=== PATIENT | male | born 1940 | race Caucasian/White ===

== ENCOUNTER → 2017-09-24 | Day surgery (SDC) | payer MEDICARE ==
[2017-09-23 11:01] VITALS: BMI 29.3
[~2017-09-24] MED LIST: ALPRAZolam 0.25 MG TAB PO PRN; ASPIRIN 325 MG TAB PO STA; ASPIRIN 81 MG PO SCH; DOXAZOSIN MESYLATE 8 MG PO SCH; GLIMEPIRIDE 4 MG TAB PO SCH; HEPARIN SODIUM 1,000 UN/ML (10ML VL) ONE; HYDROCHLOROTHIAZIDE PO SCH; IOPAMIDOL-370 125ML BTL INJ ONE; LIDOCAINE 2% SYG (PF) 100 MG/5 ML MISCELLANE ONE; METOPROLOL SUCCINATE (ER) 100 MG TAB.ER.24H PO SCH; NON-FORMULARY DRUG (Omeprazole 20 MG) PO SCH; NON-FORMULARY DRUG (Sitagliptin 100 MG) PO SCH; RX INFO: IV CONTRAST WAS GIVEN 1 EACH MISC MISCELLANE PRN; SODIUM CHLORIDE 0.9% 1,000 ML IV SCH; SODIUM CHLORIDE 0.9% 1,000 ML in EMPTY BAG 1 BAG IV ONE; VALSARTAN PO SCH; VERAPAMIL SYRINGE (5 MG/10 ML) INTRAARTER ONE; [UNRECOGNIZED DRUG - OTHER] PO SCH; amLODIPine 10 MG TAB PO SCH; cloNIDine HCL 0.2 MG TAB PO SCH; fentaNYL (PF) 50 MCG/ML 2 ML AMP IV ONE; fentaNYL (PF) 50 MCG/ML 2 ML AMP ONE
[2017-09-24 07:06] LABS: Basophils # (A) 0.1 k/uL (0-0.2); Basophils % (A) 1 %; Eosinophils # (A) 0.2 k/uL (0-0.7); Eosinophils % (A) 3 %; HCT 38.7 % (39.0-53.0); HGB 13.3 gm/dL (13.0-17.5); Lymphocytes # (A) 0.7 k/uL (1.0-4.8); Lymphocytes % (A) 11 %; MCH 30.1 pg (25.0-35.0); MCHC 34.3 g/dL (31.0-37.0); MCV 87.8 fL (80.0-100.0); Mean Platelet Volume 8.6; Monocytes # (A) 0.5 k/uL (0-1.0); Monocytes % (A) 8 %; Neutrophils # (A) 4.9 k/uL (1.3-7.7); Neutrophils % (A) 76 %; Platelet Count 139 k/uL (150-450); RBC 4.41 m/uL (4.30-5.90); RDW 13.4 % (11.5-15.5); WBC 6.5 k/uL (3.8-10.6)
[2017-09-24 07:08] LABS: Glucose,Whole Blood 185 mg/dL (75-99)
[2017-09-24 07:11] VITALS: TEMP 98
--- NOTE | 2017-09-24 08:45 | CC ---
CARDIAC CATHETERIZATION REPORT Mr. Gannon is a 77-year-old male with known history of hypertension, hyperlipidemia, diabetes mellitus, who recently underwent a myocardial perfusion imaging revealed evidence of inferoapical wall ischemia. In view of that, recommendation was made regarding cardiac catheterization. The procedure as well as the risks and the complications were discussed with the patient who is in full understanding and agreement. PROCEDURE: Patient was brought to the cath lab technologist in a fasting state after receiving fentanyl and Benadryl and achieving moderate conscious sedated state. Using Xylocaine anesthesia in the Seldinger technique, a 6-Lithuanian sheath was introduced in the right radial artery. Selective right and left coronary angiography performed using 5-Lithuanian 3.5 bend right and left Shelby catheter. Multiple views of the coronary artery including hemiaxial views obtained. Following that 5-Lithuanian tight pigtail catheter was introduced in the left ventricle and a 30-degree SPRAGUE view of the left ventricle was obtained. Following that, catheter and sheaths were removed. Hemostasis was obtained with deployment of a TR band. There was no immediate complication. Patient was returned to his room in stable condition. The patient received 4500 units of intravenous heparin as well as intraarterial verapamil. FINDINGS: LEFT MAIN: This is a large-sized vessel bifurcating left circumflex, left anterior descending artery. Left main coronary artery has no evidence of high-grade stenosis. LEFT ANTERIOR DESCENDING ARTERY: This is a large-sized vessel tapers down distal third giving rise to 2 diagonal branches of small to moderate caliber. The left anterior descending artery after the takeoff of the diagonal branch has a tubular lesion of 30% to 40%. The rest of the vessel has no high-grade stenosis. The caliber of the vessel distally is small. LEFT CIRCUMFLEX: This is a nondominant vessel, large in caliber giving rise to 3 obtuse marginal branches. The left circumflex as well as branches have no evidence of obstructive coronary disease. RIGHT CORONARY ARTERY: This is a large dominant vessel bifurcating distally to PDA and posterolateral segment and branches. The right PDA reaches toward the inferoapical wall. The right coronary artery in the proximal segment has a 20% plaque. The rest of the vessel has no high-grade stenosis. LEFT VENTRICULOGRAM: Left ventriculogram is performed in 30-degree SPRAGUE view and revealed a normal left ventricular size and systolic function. The ejection fraction is 60%. There was no significant mitral regurgitation. HEMODYNAMICS: There was no gradient across the aortic valve. The left ventricular end- diastolic pressure is 18 to 20 mmHg. CONCLUSION: 1. Mild coronary disease involving the left anterior descending artery and the right coronary artery. 2. Normal left ventricular size and systolic function. RECOMMENDATION: In view of finding anatomy, I have recommended to continue medical therapy with aggressive coronary risk modifications that have been initiated. Those findings and recommendation were discussed with the patient and his family and are in full understanding and agreement. DURATION OF PROCEDURE: 16 minutes. LEDA / AARONN: [id number] /
[2017-09-24 09:09] VITALS: RESP 18
[2017-09-24 12:10] VITALS: BP 119/59; PULSE 66
== END | disposition home or self-care (01) ==
LOC: CATHCVL 06:20
PROVIDERS: ATTEND Internal Medicine Interventional Cardiology
DX: I25.10 Atherosclerotic heart disease of native coronary artery without angina pectoris (principal); R94.39 Abnormal result of other cardiovascular function study; I10 Essential (primary) hypertension; E78.2 Mixed hyperlipidemia; E11.9 Type 2 diabetes mellitus without complications; Z79.84 Long term (current) use of oral hypoglycemic drugs; Z79.82 Long term (current) use of aspirin; Z79.899 Other long term (current) drug therapy
CPT/HCPCS: 93458; 85025; C1894; C1769; J2001; J3010; J1644; Q9967

== ENCOUNTER → 2022-10-27 | Outpatient (CLI) | payer MEDICARE ==
[2022-10-27 15:43] LABS: HCT 38.3 % (39.6-50.0); MCH 28.3 pg (27.0-32.0); MCHC 31.3 d/dL (32.0-37.0); MCV 90.3 FL (80.0-97.0); Mean Platelet Volume 11.8 FL (9.5-12.2); NRBC Per 100 WBC 0 X 10*3/uL (0.00-0.01); Platelet Count 164 X 10*3/uL (140-440); RBC 4.24 X 10*6/uL (4.40-5.60); RDW 13.5 % (11.5-14.5)
[2022-10-27 15:54] LABS: Blood Urea Nitrogen 20.5 mg/dL (9.0-27.0); Carbon Dioxide 27.7 mmol/L (21.6-31.8); Chloride 105 mmol/L (96-109); Sodium 143 mmol/L (135-145)
== END | disposition home or self-care (01) ==
LOC: LABWHC1 11:24
PROVIDERS: ATTEND Internal Medicine Interventional Cardiology
DX: Z01.812 Encounter for preprocedural laboratory examination (principal); R94.39 Abnormal result of other cardiovascular function study
CPT/HCPCS: 36415; 80051; 82565; 84520; 85027

== ENCOUNTER 2022-11-04 06:15 | Day surgery (SDC) | payer MEDICARE ==
[~2022-11-04 06:15] MED LIST changes: +ALPRAZolam 0.5 MG TAB PO PRN; -ASPIRIN 81 MG PO SCH; +ATORVASTATIN 80 MG TAB PO STA; -DOXAZOSIN MESYLATE 8 MG PO SCH; -GLIMEPIRIDE 4 MG TAB PO SCH; -HEPARIN SODIUM 1,000 UN/ML (10ML VL) ONE; +HEPARIN SODIUM,PORCINE (1 ML) 2,500 UNIT in SODIUM CHLORIDE 0.9% 250 ML IRRIGATION PRN; +HEPARIN SODIUM,PORCINE 10,000 UNIT in SODIUM CHLORIDE 0.9% 1,000 ML IRRIGATION PRN; -HYDROCHLOROTHIAZIDE PO SCH; -IOPAMIDOL-370 125ML BTL INJ ONE; -LIDOCAINE 2% SYG (PF) 100 MG/5 ML MISCELLANE ONE; -METOPROLOL SUCCINATE (ER) 100 MG TAB.ER.24H PO SCH; +NITROGLYCERIN SL TABS 0.4 MG TAB SUBLINGUAL PRN; -NON-FORMULARY DRUG (Omeprazole 20 MG) PO SCH; -NON-FORMULARY DRUG (Sitagliptin 100 MG) PO SCH; -RX INFO: IV CONTRAST WAS GIVEN 1 EACH MISC MISCELLANE PRN; -SODIUM CHLORIDE 0.9% 1,000 ML IV SCH; -SODIUM CHLORIDE 0.9% 1,000 ML in EMPTY BAG 1 BAG IV ONE; +SODIUM CHLORIDE 0.9% 1,000 ML in EMPTY BAG 1 BAG IV SCH; -VALSARTAN PO SCH; -VERAPAMIL SYRINGE (5 MG/10 ML) INTRAARTER ONE; -[UNRECOGNIZED DRUG - OTHER] PO SCH; -amLODIPine 10 MG TAB PO SCH; -cloNIDine HCL 0.2 MG TAB PO SCH; -fentaNYL (PF) 50 MCG/ML 2 ML AMP IV ONE; -fentaNYL (PF) 50 MCG/ML 2 ML AMP ONE
[2022-11-04] MEDS ORDERED: SODIUM CHLORIDE 0.9% 1,000 ML IV ONE (06:26)
[2022-11-04 06:48] LABS: Glucose,Whole Blood 113 mg/dL (70-110)
[2022-11-04 06:57] VITALS: RESP 16; TEMP 99.1
[2022-11-04] MEDS ORDERED: VERAPAMIL 2.5 MG/ML 2 ML AMP ONE (07:21)
[2022-11-04] MEDS ORDERED: fentaNYL (PF) 50 MCG/ML 2 ML AMP ONE (07:22)
[2022-11-04] MEDS ORDERED: HEPARIN SODIUM 1,000 UN/ML (10ML VL) ONE (07:22)
[2022-11-04] MEDS ORDERED: fentaNYL (PF) 50 MCG/ML 2 ML AMP IVP ONE (07:40)
[2022-11-04] MEDS ORDERED: LIDOCAINE 1% INJ 10MG/ML (5 ML VIAL-PF) SQ ONE (07:44)
[2022-11-04] MEDS ORDERED: VERAPAMIL SYRINGE (5 MG/10 ML) INTRAARTER ONE (07:45)
[2022-11-04] MEDS ORDERED: HEPARIN SODIUM 1,000 UN/ML (10ML VL) IVP ONE (07:49)
[2022-11-04] MEDS ORDERED: IOPAMIDOL-370 100ML BTL INJ ONE (08:04)
[2022-11-04] MEDS ORDERED: RX INFO: IV CONTRAST WAS GIVEN 1 EACH MISC MISCELLANE PRN (08:51)
--- NOTE | 2022-11-04 08:58 | P.CARDCATH ---
Date of Procedure: 11/04/22 Description of Procedure: Cardiac Catheterization: The patient is an 82-year-old male with known history of hypertension, hyperlipidemia and diabetes, known history of CAD who recently had an abnormal MPI and had symptoms of fatigue and progressive dyspnea. Recommendations were made regarding cardiac catheterization, the risks and the complications were discussed with the patient who is in full understanding and agreement. Procedure Description: Patient was brought to crown and bridge dental lab technician in fasting semi-sedated state after receiving Fentanyl and Benadryl achieiving moderate conscious sedated state. Using Xylocaine Anesthesia and Seldinger technique, a 6-New Zealander sheath was introduced in the right radial artery . Subsequently, selective coronary angiography was performed using a 5-[place] Zealander 3.5 bend Shelby catheter. Multiple views of the coronary artery including hemiaxial views were obtained. The 5-[place] Zealander pigtail catheter was used to cross the aortic valve and LVEDP was calculated. After removing the catheters a 6-New Zealander EBU 3.75 guiding catheter was used to cannulate the left main, subsequently an Omni Doppler flow wire was advanced into the circumflex and IFR was measured at 102. Following that, catheter and sheath were removed. Hemostasis was obtained with deployment of TR band . There was no immediate complication. Patient was returned to room in stable condition. Of note, the patient received a total of 5000 units of intravenous heparin as well as intra-arterial verapamil. Findings: Left main: This is a large size vessel, bifurcating into left circumflex, LAD, the left main has no obstructive disease. LAD: This is a large-size vessel tapers down in the distal third. Gives rise to 2 diagonal branch. The mid LAD has 20-30% plaque, the mid LAD after the takeoff of the second diagonal branch has about a 60% plaque, the vessel beyond that is small in caliber. Left circumflex: This is a large nondominant vessel giving us to 2 obtuse marginal branch, the vessel is tortuous. After the takeoff of the first marginal branch there is an eccentric plaque of about 60%, the rest of the vessel has no high-grade stenosis RCA: This is a large dominant vessel, bifurcating into PDA and PLV, the RCA has no obstructive disease. Left Ventriculogram: Not performed Hemodynamics: There was no gradient across the aortic valve , LVEDP was 18-20 mmHg Conclusion: 1. Moderate disease in the proximal left circumflex with nonhemodynamically significant IFR 2. Moderate disease in the mid-distal LAD with no progression compared to 2018 3. obstructive disease in the RCA 4. Right dominance Recommendations: Have recommended to continue medical therapy with aggressive coronary risks jamison fication, the left circumflex lesion is non-hemodynamically significant. The findings and the recommendations were discussed with the patient and the family and they were in full understanding and agreement. Duration of sedation is 24 minutes.
[2022-11-04] MEDS ORDERED: METOPROLOL SUCCINATE (ER) 100 MG TAB.ER.24H PO SCH (09:00)
[2022-11-04] MEDS ORDERED: hydrALAZINE HCL 25 MG TAB PO SCH (09:00)
[2022-11-04] MEDS ORDERED: NON FORMULARY DRUG (Omeprazole 20 MG Capsule.Dr) PO SCH (09:00)
[2022-11-04] MEDS ORDERED: NON FORMULARY DRUG (Valsartan/Hydrochlorothiazide [Valsartan-Hctz 320-25 Mg Tab] 1 EACH Ta PO SCH (09:00)
[2022-11-04] MEDS ORDERED: GLIMEPIRIDE 4 MG TAB PO SCH (09:00)
[2022-11-04] MEDS ORDERED: ASPIRIN 81 MG PO SCH (09:00)
[2022-11-04] MEDS ORDERED: NON FORMULARY DRUG (Insulin Glargine,Hum.Rec.Anlog [Lantus Solostar Pen] 100 UNIT/ML Insul SQ SCH (09:00)
[2022-11-04] MEDS ORDERED: DOXAZOSIN MESYLATE 8 MG PO SCH (09:00)
[2022-11-04] MEDS ORDERED: amLODIPine 10 MG TAB PO SCH (09:00)
[2022-11-04] MEDS ORDERED: SODIUM CHLORIDE 0.9% 1,000 ML IV SCH (09:00)
[2022-11-04] MEDS ORDERED: cloNIDine HCL 0.2 MG TAB PO SCH (09:00)
[2022-11-04] MEDS ORDERED: NON FORMULARY DRUG (Simvastatin 20 MG Tab) PO SCH (09:00)
[2022-11-04 12:46] VITALS: BP 145/67; PULSE 61
== END 2022-11-04 12:37 | disposition home or self-care (01) ==
LOC: CATHCVL 06:15
PROVIDERS: ATTEND Internal Medicine Interventional Cardiology
DX: I25.10 Atherosclerotic heart disease of native coronary artery without angina pectoris (principal); I10 Essential (primary) hypertension; E78.5 Hyperlipidemia, unspecified; E11.9 Type 2 diabetes mellitus without complications; F17.210 Nicotine dependence, cigarettes, uncomplicated; Z79.899 Other long term (current) drug therapy; Z79.82 Long term (current) use of aspirin
CPT/HCPCS: 93458; 93799; C1887; C1769 ×3; C1894; J2001; J3010; J1644; Q9967

== ENCOUNTER → 2023-07-01 | Day surgery (SDC) | payer MEDICARE ==
[~2023-07-01] MED LIST changes: -ALPRAZolam 0.25 MG TAB PO PRN; -ALPRAZolam 0.5 MG TAB PO PRN; -ASPIRIN 325 MG TAB PO STA; -ATORVASTATIN 80 MG TAB PO STA; +ATROPINE SULFATE 0.4 MG/ML 1 ML VIAL IM ONE; -HEPARIN SODIUM,PORCINE (1 ML) 2,500 UNIT in SODIUM CHLORIDE 0.9% 250 ML IRRIGATION PRN; -HEPARIN SODIUM,PORCINE 10,000 UNIT in SODIUM CHLORIDE 0.9% 1,000 ML IRRIGATION PRN; +KETAMINE HCL IN 0.9 % NACL 50 MG/5 ML SYRINGE ONE; +LACTATED RINGERS 1,000 ML IV SCH; +LIDOCAINE 1% (10MG/ML) FOR IV START INTRADERMA PRN; +LIDOCAINE 1% INJ 10MG/ML (20 ML MDV) ONE; -NITROGLYCERIN SL TABS 0.4 MG TAB SUBLINGUAL PRN; +PROPOFOL 10 MG/ML 20 ML VIAL IV ONE; -SODIUM CHLORIDE 0.9% 1,000 ML in EMPTY BAG 1 BAG IV SCH; +fentaNYL (PF) 50 MCG/ML 2 ML AMP ONE
[2023-07-01 11:48] LABS: Glucose,Whole Blood 169 mg/dL (70-110)
[2023-07-01] MEDS: LACTATED RINGERS 1,000 ML IV SCH (11:54)
[2023-07-01 11:55] VITALS: TEMP 97.2
[2023-07-01] MEDS: LIDOCAINE 2% INJ 20 MG/ML INTRATRACH ONE (12:12)
--- NOTE | 2023-07-01 12:59 | PCN ---
PROCEDURE NOTE PROCEDURES PERFORMED: Bronchoscopy airway examination, therapeutic lavage, BAL. PREOPERATIVE DIAGNOSES: Hemoptysis, bronchitis. POSTOPERATIVE DIAGNOSES: Hemoptysis, bronchitis. BIOMETRIC TECHNICIAN: Dr. Rosales. FIRST MASH TUB COOKER: Dr. Freda Monge. The patient's procedure took place in room #1 [facility]. ANESTHESIA PROVIDED: General anesthesia. There was informed consent and universal timeout. DESCRIPTION OF PROCEDURE: After the patient was adequately sedated and being fully monitored, the bronchoscope was inserted through the left nostril. It passed through the left nasopharynx into the oropharynx. The hypopharynx was identified. The hypopharyngeal structures all appeared normal including anterior commissure, true cords, false cords, piriform sinuses, right and left, vallecula, and epiglottis. After topicalization of the glottic opening, the bronchoscope was pushed through the glottic opening into the trachea. There were some secretions noted in the trachea. They were suctioned without difficulty. There was no tracheal mass or tumor. Tracheal cristobal was sharp. The right and left mainstem were topicalized. The right upper lobe and its 3 segments, right middle lobe and its 2 segments, right lower lobe and its 5 segments, left upper lobe and its 2 segments, lingula and its 2 segments and left lower lobe and its 4 segments all had similar findings of diffuse airway mucosal erythema and hyperemia. I would say it was moderate in severity. There was some mucosal friability. There was some vascular engorgement. There was no active bleeding. Maybe some old blood was noted. There was no definitive mass or tumor. The patient tolerated the procedure well. The secretions were suctioned. The secretions were a bit purulent suggesting bronchitis or infection. The bronchoscope was wedged into the right middle lobe. We did a formal BAL. About 30 mL of fluid was recovered. It will be sent to the laboratory for analysis. There was no immediate complication. The patient tolerated the procedure well. MMODL / IJN: [id number] /
[2023-07-01 13:13] VITALS: BP 142/72; RESP 20
[2023-07-01 13:14] VITALS: PULSE 58
[2023-07-01 21:09] LABS: Appearance,BF Cloudy (Clear); RBC, Body Fluid 1975 /UL (0-2000)
[2023-07-02 09:29] LABS: Nucleated Cells, Body Fluid 20 /UL
== END ==
LOC: ORWHC2ENDO 11:00
PROVIDERS: ATTEND Internal Medicine Critical Care Medicine
DX: J40 Bronchitis, not specified as acute or chronic (principal); I10 Essential (primary) hypertension; E78.5 Hyperlipidemia, unspecified; E11.9 Type 2 diabetes mellitus without complications
CPT/HCPCS: 87798 ×3; 87496; 87498; 87529; 88108; 88305; 89050; 87502; 87634; 87070; 87205; 87116; 87102; 87206; 87635; 31624; J2001 ×2; J3010; J2704